=== PATIENT | female | born 1945 | race African-American/Black ===

== ENCOUNTER 2020-11-12 23:46 | Emergency (ER) | payer MEDICARE, MEDICAID ==
[~2020-11-12] VITALS: Ht 160 cm; Wt 75.0 kg
[2020-11-13] MEDS ORDERED: HYDROCODONE/ACETAMINOPHEN 5/325MG TABLET PO STA (01:54)
[2020-11-13] MEDS ORDERED: IBUP-2029 MT (05:07)
[2020-11-13 07:00] VITALS: BP 133/69
== END 2020-11-13 07:17 | disposition home or self-care (01) ==
LOC: ER 23:46
DX: M54.89 Other dorsalgia (principal); M54.2 Cervicalgia; R03.0 Elevated blood-pressure reading, without diagnosis of hypertension; E04.1 Nontoxic single thyroid nodule; Z88.0 Allergy status to penicillin
CPT/HCPCS: 71045; 72128; 72131; 99285

== ENCOUNTER 2020-11-13 10:02 | Emergency (ER) | payer MEDICARE, MEDICAID ==
[~2020-11-13 10:02] MED LIST: IBUP-2029 MT
== END 2020-11-13 10:48 | disposition home or self-care (01) ==
LOC: ER 10:02
DX: Z53.21 Procedure and treatment not carried out due to patient leaving prior to being seen by health care provider (principal); M54.9 Dorsalgia, unspecified; M54.2 Cervicalgia

== ENCOUNTER 2021-08-11 14:13 | Emergency (ER) | payer MEDICARE, MEDICAID ==
[~2021-08-11] VITALS: Ht 160 cm; Wt 73.0 kg
[2021-08-11 14:17] VITALS: BP 135/113
[2021-08-11] MEDS ORDERED: TOPUD MT (14:25)
== END 2021-08-11 15:37 | disposition home or self-care (01) ==
LOC: ER 15:09
DX: G89.29 Other chronic pain (principal); M25.511 Pain in right shoulder; M25.561 Pain in right knee; R03.0 Elevated blood-pressure reading, without diagnosis of hypertension
CPT/HCPCS: 99282

== ENCOUNTER 2022-02-20 17:25 | Emergency (ER) | payer MEDICARE, MEDICAID ==
[~2022-02-20] VITALS: Ht 160 cm; Wt 56.0 kg
[~2022-02-20 17:25] MED LIST changes: +TOPUD MT
[2022-02-20] MEDS ORDERED: ACETAMINOPHEN 325MG TABLET PO ONE (23:00)
[2022-02-20] MEDS ORDERED: FLUT15.844 BOTHNSTRLS (23:11)
[2022-02-20 23:34] VITALS: BP 119/60
== END 2022-02-20 23:20 | disposition home or self-care (01) ==
LOC: ER 17:54
DX: H69.82 Other specified disorders of Eustachian tube, left ear (principal); F03.90 Unspecified dementia, unspecified severity, without behavioral disturbance, psychotic disturbance, mood disturbance, and anxiety; Z79.899 Other long term (current) drug therapy; Z88.0 Allergy status to penicillin
CPT/HCPCS: 99283

== ENCOUNTER 2022-02-21 08:53 | Inpatient (IN) | payer MEDICARE, MEDICAID ==
[~2022-02-21] VITALS: Ht 157.5 cm; Wt 45.4 kg
[~2022-02-21 08:53] MED LIST changes: +FLUT15.844 BOTHNSTRLS
[2022-02-21] MEDS ORDERED: LIDOCAINE HCL/PF 1% 10 MG/ML 5ML VIAL INFIL ONE ×2 (09:45→11:45)
[2022-02-21 10:04] LABS: HEMATOCRIT. 53.3 % (36.0-48.0); HEMOGLOBIN. 17.2 g/dL (12.0-16.0); MEAN CORPUSCULAR HEMOGLOBIN 26.9 pg (28.0-32.0); MEAN CORPUSCULAR VOLUME 83.5 fL (81.0-99.0); MEAN PLATELET VOLUME 8.5 fl (7.4-10.4); PLATELET 319 x1000/uL (130-400); RED BLOOD CELL COUNT 6.39 mill/uL (4.2-5.4); RED CELL DISTRIBUTION WIDTH 16.5 % (11.6-14.6)
[2022-02-21 10:08] LABS: CHLORIDE 92 mEq/L (98-107)
[2022-02-21 10:43] LABS: PLATELET ESTIMATE NORMAL
[2022-02-21] MEDS ORDERED: ENOXAPARIN 60MG/0.6ML SYR SUBCUT ONE (11:00)
[2022-02-21] MEDS ORDERED: PIPERACILLIN/TAZ 3.375G PREMIX 50 ML IV ONE (11:00)
[2022-02-21] MEDS ORDERED: VANCOMYCIN 1G PREMIX 200 ML IV ONE (11:00)
[2022-02-21] MEDS ORDERED: VANCOMYCIN 1G PREMIX 200 ML IV NR (14:15)
[2022-02-21] MEDS ORDERED: DOCUSATE SODIUM 100MG CAPSULE PO PRN (15:45)
[2022-02-21] MEDS ORDERED: ONDANSETRON HCL 4MG/2ML INJ IV PRN (15:45)
[2022-02-21] MEDS ORDERED: ACETAMINOPHEN 325MG TABLET PO PRN ×2 (15:45)
[2022-02-21] MEDS ORDERED: CLONIDINE 0.1MG TABLET PO PRN (15:45)
[2022-02-21] MEDS ORDERED: ENOXAPARIN 30MG/0.3ML SYR SUBCUT SCH (17:00)
[2022-02-21] MEDS ORDERED: SODIUM CHLORIDE 0.9% 1,000 ML IV ONE (18:00)
[2022-02-21] MEDS: SODIUM CHLORIDE 0.9% INJ 3ML FLUSH IVF SCH (22:00)
[2022-02-21] MEDS ORDERED: LORAZEPAM 2MG/ML CPJ IV PRN (22:45)
[2022-02-21] MEDS ORDERED: NOREPINEPHRINE 8MG/250ML PMX 250 ML IV ONE (23:00)
[2022-02-21] MEDS ORDERED: PANTOPRAZOLE SODIUM 40 MG/VIAL IV NR (23:15)
[2022-02-21] MEDS ORDERED: DEXTROSE 50% WATER 50ML SYRINGE IV ONE (23:30)
[2022-02-21] MEDS ORDERED: PANTOPRAZOLE 80 MG in SODIUM CHLORIDE 0.9% 100 ML IV SCH ×2 (23:30→23:45)
[2022-02-21] MEDS ORDERED: DEXT 5%/LACTATED RINGERS 1,000 ML IV NR ×2 (23:30)
[2022-02-21 23:39] LABS: BASOPHILS % 0.1 % (0.0-2.0); EOSINOPHILS % 0.1 % (0.0-5.0); HEMATOCRIT. 44.9 % (36.0-48.0); HEMOGLOBIN. 14.5 g/dL (12.0-16.0); MEAN CORPUSCULAR VOLUME 83.6 fL (81.0-99.0); MONOCYTES % 8.6 % (2.0-8.0); NEUTROPHILS % 80.2 % (40.0-76.0); PLATELET 245 x1000/uL (130-400); RED BLOOD CELL COUNT 5.38 mill/uL (4.2-5.4); RED CELL DISTRIBUTION WIDTH 16.2 % (11.6-14.6)
[2022-02-21 23:51] LABS: BG BASE EXCESS -24.9 mmol/L (-2.0-2.0); BG CARBOXYHEMOGLOBIN 0.3 % (0.5-1.5); BG DEOXYHEMOGLOBIN 1.1 % (0.0-5.0); BG FRACTION INSPIRED OXYGEN 100; BG HCO3 ACT 9.4 mmol/L (22.0-26.0); BG METHEMOGLOBIN 0.3 % (0.0-1.5); BG OXYGEN SATURATION 98.9 % (92.0-98.5); BG OXYHEMOGLOBIN 98.3 % (94.0-97.0); BG PCO2 55.8 mmHg (35.0-45.0); BG PH 6.846 (7.350-7.450); BG PO2 253.3 mmHg (75.0-100.0); BG SAMPLE SITE LEFT BRACHIAL; BG TOTAL HEMOGLOBIN 15.2 g/dL (12.0-18.0); BG VENT MODE VENT - AC
[2022-02-22] VITALS (67 sets, daily range): BP systolic 54–200; BP diastolic 30–80
[2022-02-22] MEDS ORDERED: BLOOD SUGAR DIAGNOSTIC STRIP TEST ONE
[2022-02-22] MEDS ORDERED: MEROPENEM 500 MG in SODIUM CHLORIDE 0.9% 50 ML IV SCH (01:00)
[2022-02-22 01:23] LABS: INR 1.4; PARTIAL THROMBOPLASTIN TIME 56.9 sec (23.4-31.0); PROTHROMBIN TIME 14.8 sec (9.6-11.0)
[2022-02-22] MEDS ORDERED: SODIUM BICARBONATE 8.4% 1 MEQ/ML 50ML SYR IV NR ×5 (01:30→15:30)
[2022-02-22] MEDS: DEXT 5%/0.9% NACL 1,000 ML IV SCH ×3 (01:30→17:13)
[2022-02-22] MEDS: NOREPINEPHRINE 8 MG in DEXT 5% WATER 242 ML IV PRN ×4 (02:31→12:15)
[2022-02-22 02:32] LABS: BG BASE EXCESS -20.3 mmol/L (-2.0-2.0); BG CARBOXYHEMOGLOBIN 0.3 % (0.5-1.5); BG DEOXYHEMOGLOBIN 1.8 % (0.0-5.0); BG FRACTION INSPIRED OXYGEN 100; BG HCO3 ACT 11.6 mmol/L (22.0-26.0); BG METHEMOGLOBIN 0.2 % (0.0-1.5); BG OXYGEN SATURATION 98.2 % (92.0-98.5); BG OXYHEMOGLOBIN 97.7 % (94.0-97.0); BG PCO2 50.5 mmHg (35.0-45.0); BG TOTAL HEMOGLOBIN 16.9 g/dL (12.0-18.0); BG VENT MODE VENT - AC
[2022-02-22 02:36] LABS: HEMATOCRIT. 47.5 % (36.0-48.0); MEAN CORPUSCULAR HEMOGLOBIN 27.9 pg (28.0-32.0); MEAN CORPUSCULAR VOLUME 88.3 fL (81.0-99.0); MEAN PLATELET VOLUME 8.8 fl (7.4-10.4); PLATELET 182 x1000/uL (130-400); RED BLOOD CELL COUNT 5.38 mill/uL (4.2-5.4); RED CELL DISTRIBUTION WIDTH 16.6 % (11.6-14.6)
[2022-02-22] MEDS: DOPAMINE 400MG/250ML PREMIX 250 ML IV PRN ×2 (03:20→10:08)
[2022-02-22] MEDS ORDERED: SODIUM BICARBONATE 5MEQ SYR 100 MEQ in DEXTROSE 5% WATER 1,000 ML IV SCH (03:30)
[2022-02-22] MEDS ORDERED: DEXTROSE 50% WATER 50ML SYRINGE IV PRN (03:45)
[2022-02-22 03:47] LABS: PLATELET ESTIMATE NORMAL
[2022-02-22] MEDS: SODIUM BICARBONATE 100 MEQ in DEXTROSE 5% WATER 1,000 ML IV SCH ×2 (04:55→14:20)
[2022-02-22] MEDS: PHENYLEPHRINE 100 MG in DEXT 5% WATER 240 ML IV PRN ×2 (04:56→15:14)
[2022-02-22] MEDS: VASOPRESSIN 20 UNIT in SODIUM CHLORIDE 0.9% 99 ML IV PRN ×2 (04:57→13:30)
[2022-02-22] MEDS: BLOOD SUGAR DIAGNOSTIC STRIP TEST SCH ×4 (04:58→16:00)
[2022-02-22] MEDS: SODIUM CHLORIDE 0.9% INJ 3ML FLUSH IVF SCH ×2 (06:00→13:37)
[2022-02-22 09:05] LABS: BG BASE EXCESS -24.9 mmol/L (-2.0-2.0); BG DEOXYHEMOGLOBIN 1.2 % (0.0-5.0); BG FRACTION INSPIRED OXYGEN 100; BG HCO3 ACT 5.7 mmol/L (22.0-26.0); BG METHEMOGLOBIN 0.3 % (0.0-1.5); BG OXYGEN SATURATION 98.8 % (92.0-98.5); BG OXYHEMOGLOBIN 98.5 % (94.0-97.0); BG PCO2 26.8 mmHg (35.0-45.0); BG PH 6.943 (7.350-7.450); BG PO2 246.7 mmHg (75.0-100.0); BG SAMPLE SITE LEFT FEMORAL; BG TOTAL HEMOGLOBIN 8.8 g/dL (12.0-18.0); BG VENT MODE VENT - AC
[2022-02-22] MEDS ORDERED: PANTOPRAZOLE 80 MG in SODIUM CHLORIDE 0.9% 100 ML IV SCH (11:00)
[2022-02-22] MEDS ORDERED: MEROPENEM 500MG in NORMAL SALINE 50ML IV SCH (11:00)
[2022-02-22 14:32] LABS: CHLORIDE 79 mEq/L (98-107)
[2022-02-22 14:57] LABS: MEAN CORPUSCULAR HEMOGLOBIN 28.1 pg (28.0-32.0); MEAN PLATELET VOLUME 9.3 fl (7.4-10.4); PLATELET 53 x1000/uL (130-400); RED BLOOD CELL COUNT 2.87 mill/uL (4.2-5.4); RED CELL DISTRIBUTION WIDTH 18.1 % (11.6-14.6)
[2022-02-22 15:04] LABS: HEMATOCRIT. 28.3 % (36.0-48.0); HEMOGLOBIN. 8.1 g/dL (12.0-16.0); MEAN CORPUSCULAR VOLUME 98.5 fL (81.0-99.0)
[2022-02-22 16:22] LABS: NUCLEATED RED BLOOD CELLS 8 /100 WBC; PLATELET ESTIMATE MARKEDLY DECREASED
[2022-02-22] MEDS ORDERED: MORPHINE SULFATE 250 MG in DEXT 5% WATER 225 ML IV PRN (17:00)
== END 2022-02-22 16:49 | DRG 720 ==
LOC: ER 08:53 → CVICU 11:30 → ENRESERV 23:23
PROVIDERS: ADMIT Internal Medicine; ATTEND Internal Medicine
PROC: 5A1935Z Respiratory Ventilation, Less than 24 Consecutive Hours (ICD-10-PCS; principal; 2022-02-21)
PROC: 0BH17EZ Insertion of Endotracheal Airway into Trachea, Via Natural or Artificial Opening (ICD-10-PCS; 2022-02-21)
PROC: 5A12012 Performance of Cardiac Output, Single, Manual (ICD-10-PCS; 2022-02-21)
PROC: 06HY33Z Insertion of Infusion Device into Lower Vein, Percutaneous Approach (ICD-10-PCS; 2022-02-21)
PROC: 0HQ1XZZ Repair Face Skin, External Approach (ICD-10-PCS; 2022-02-21)
PROC: 30233N1 Transfusion of Nonautologous Red Blood Cells into Peripheral Vein, Percutaneous Approach (ICD-10-PCS; 2022-02-21)
DX: A41.9 Sepsis, unspecified organism (principal); J96.01 Acute respiratory failure with hypoxia; I46.9 Cardiac arrest, cause unspecified; R65.21 Severe sepsis with septic shock; G93.40 Encephalopathy, unspecified; E87.20 Acidosis, unspecified; N17.9 Acute kidney failure, unspecified; Z20.822 Contact with and (suspected) exposure to COVID-19; F03.90 Unspecified dementia, unspecified severity, without behavioral disturbance, psychotic disturbance, mood disturbance, and anxiety; R77.8 Other specified abnormalities of plasma proteins; K21.9 Gastro-esophageal reflux disease without esophagitis; I21.4 Non-ST elevation (NSTEMI) myocardial infarction; I11.9 Hypertensive heart disease without heart failure; S01.81XA Laceration without foreign body of other part of head, initial encounter; Z88.0 Allergy status to penicillin; Z79.899 Other long term (current) drug therapy; W18.11XA Fall from or off toilet without subsequent striking against object, initial encounter; Y93.89 Activity, other specified; Y92.89 Other specified places as the place of occurrence of the external cause; Y99.8 Other external cause status
CPT/HCPCS: 31500; 36415; 36600; 71045; 72170; 72192; 80048; 80053; 82375; 82553; 82805; 82962; 83605; 83880; 84145; 84484; 85025; 86850; 86900; 86920; 87426; 93005; 93306; 99291; C9113; J1265; J2185; J2370; J2543; J3370; J3490; J7042; J7050; J7060; J7070; P9016; A4315